=== PATIENT | female | born 1985 | race Caucasian/White ===

== ENCOUNTER 2017-11-19 11:05 | Emergency (ER) | payer OTHER ==
[~2017-11-19] VITALS: Ht 157.5 cm; Wt 107.0 kg
[2017-11-19] MEDS ORDERED: PROGESTERONE100 MG (12:13)
[2017-11-19] MEDS ORDERED: ASPIR 8181 MG (12:13)
[2017-11-19] MEDS ORDERED: LOVENOX300 MG/3 M (12:14)
== END 2017-11-19 13:44 | disposition home or self-care (01) ==
LOC: ER 11:05
DX: O26.891 Other specified pregnancy related conditions, first trimester (principal); M65.842 Other synovitis and tenosynovitis, left hand; Z34.81 Encounter for supervision of other normal pregnancy, first trimester

== ENCOUNTER → 2017-12-03 | Emergency (ER) | payer OTHER ==
[~2017-12-03] VITALS: Ht 157.5 cm; Wt 107.0 kg
[~2017-12-03] MED LIST: ASPIR 8181 MG; LOVENOX300 MG/3 M; PROGESTERONE100 MG
== END | disposition home or self-care (01) ==
LOC: ER 20:32
DX: O20.0 Threatened abortion (principal); Z34.01 Encounter for supervision of normal first pregnancy, first trimester

== ENCOUNTER 2018-01-21 22:44 | Day surgery (SDC) | payer OTHER ==
[~2018-01-21] VITALS: Ht 157.5 cm; Wt 106.1 kg
== END 2018-01-22 21:55 | disposition home or self-care (01) ==
LOC: ER 22:44 → CIR.AMB 01-22 10:27
DX: O72.2 Delayed and secondary postpartum hemorrhage (principal)